=== PATIENT | male | born 1990 | race Caucasian/White ===

== ENCOUNTER 2016-11-08 03:14 | Emergency (ER) | payer SELFPAY ==
[~2016-11-08] VITALS: Ht 177.8 cm; Wt 76.9 kg
[~2016-11-08 03:14] MED LIST: ACET-1256 PO; IBUP-1050 PO
[2016-11-08 03:18] VITALS: TEMP 36.9; Ht 177.8 cm; Wt 76.9 kg
[2016-11-08] MEDS ORDERED: BENZOCAINE 20% (ORAJEL) 11.9 GM TUBE MT STA (03:36)
[2016-11-08] MEDS ORDERED: AMOXICILLIN 250 MG CAP PO STA (03:36)
[2016-11-08 03:38] VITALS: BP 134/98; PULSE 123; O2SAT 97
[2016-11-08] MEDS ORDERED: OXYCODONE IR HOME PACK PO ONE (03:45)
[2016-11-08] MEDS ORDERED: AMOXICIL/CLAVU 875MG HOME PACK PO ONE (03:45)
--- NOTE | 2016-11-08 03:49 | EMERGENCY ROOM VISIT NOTE ---
History First contact with patient: 03:21 Chief Complaint: DENTAL PAIN Stated Complaint: ABCESS TOOTH Nursing Triage Summary: "I think I have an abcess tooth" c/o pain in back bottom Right symptoms began Wednesday History of Present Illness The patient is a 26 year old male who presents to the Emergency Room with complaints of dental pain for the past few days who has poor dentition. He has not seen a dentist. He continues to smoke. He chews tobacco. Patient is present pain as aching, ranging in severity 6 out of 10. Nothing makes it better or worse. Patient denies fever, chills, cough, congestion, neck stiffness, dysphagia, chest pain, dyspnea. He is tolerating by mouth fluids and food. Review of Systems See HPI for pertinent positives & negatives. A total of 10 systems reviewed and were otherwise negative. Past Medical/Surgical History Medical Problems: (1) Finger laceration (2) No Known Active Medical Problems Social History Smoking Status: Current Every Day Smoker Smokeless Tobacco Use: Yes Alcohol Use: occasionally Marital Status: single Occupation Status: unemployed Current/Historical Medications Scheduled PRN Acetaminophen (Tylenol), 1,000 MG PO TID PRN for Pain or Fever Ibuprofen (Advil), 400-600 MG PO Q6H PRN for Pain Allergies Coded Allergies: No Known Allergies (Unverified , 11/08/16) Physical Exam Vital Signs Date Time Temp Pulse Resp B/P Pulse Ox O2 Delivery O2 Flow Rate FiO2 11/08/16 03:38 123 18 134/98 97 Room Air 11/08/16 03:18 36.9 138 20 127/81 96 Room Air Physical Exam VITALS: Vitals are noted on the nurse's note and reviewed by myself. Vital signs tachycardic GENERAL:pleasant male, anxious appearing, in no acute distress, nondiaphoretic, well-developed well-nourished. SKIN: The skin was without rashes, erythema, edema, or bruising. There is no tenting of the skin. Capillary reflex less than 2 seconds. HEAD: Normocephalic atraumatic. EARS: External auditory canals clear, tympanic membranes pearly bhatt without erythema or effusion bilaterally. EYES: Pupils equal round and reactive to light and accommodation. Conjunctivae without injection, sclerae without icterus. Extraocular movements intact. NOSE: Patent, turbinates without inflammation or discharge. No sinus tenderness. MOUTH: Mucous membranes moist. Pharynx without erythema or exudate. Uvula midline. Airway patent. Tongue does not deviate. Dental exam: Multiple missing teeth with dental decay, left lower molar with extensive dental decay, that is erythematous with no palpable abscess, induration to the gumline with no fluctuance NECK: Supple without nuchal rigidity. No lymphadenopathy. No thyromegaly. Cervical spine is nontender. No JVD. No meningeal signs HEART: Regular rate and rhythm without murmurs gallops or rubs. LUNGS: Clear to auscultation bilaterally without wheezes, rales or rhonchi. No dullness to percussion. No retractions or accessory muscle use. ABDOMEN: Positive bowel sounds x 4. Normal tympanic percussion. Soft, nontender, without masses or organomegaly. Reed sign negative. No guarding or rebound tenderness. MUSCULOSKELETAL: No muscle atrophy, erythema, or edema noted. NEURO: Patient was alert and oriented to person place and time. Normal sensation to light and sharp touch. No focal neurological deficits. Medical Decision & Procedures ED Course Prior records reviewed and summarized as above. Triage Nursing notes reviewed. The patient's history was concerning for dental pain Differential diagnosis: Etiologies such as cellulitis, abscess, gingivitis, Naveed angina, as well as others were entertained.. Physical examination: The physical examination was consistent with dental pain from dental infection ER treatment provided: Augmentin, OxyIR On reassessment the patient felt better. Diagnostics interpreted by me: Deferred This appears to be dental pain from dental infection. Patient was started on antibiotics and counseled on proper dental hygiene. He was advised to oral surgeon as soon as possible for treatment for his dental problem. His extensive dental decay and exposed roots. I believe the infection is from this. He was advised to return to the intermediate for facial swelling, fevers , stiffness, worsening signs or symptoms or as needed. Patient had no signs of airway compromise, Naveed angina or meningitis. No palpable abscess on exam. The pt informed about the findings as listed above. All questions were answered and pleased with the treatment. Return instructions were outlined and the patient was discharged in stable condition. Outpatient prescription management: Augmentin, OxyIR Referral: The patient was referred to oral surgery for follow-up in 2 to 3 days for a recheck of the current condition. Medical Decision As above Impression Primary Impression: Dental caries Additional Impression: Pain, dental Departure Information Dispostion Home / Self-Care Condition GOOD Referrals No Doctor, Assigned (PCP) Patient Instructions My [facility] Additional Instructions Augmentin 875mg: Take one pill 2 times daily for 10 days for your infection. All antibiotics can cause diarrhea. If this occurs and you feel worse or it does not resolve in 1-2 days follow up with your doctor or return to the Emergency Department as this could be signs of serious underlying problems. Any medication can cause an allergic reaction, stop the pills immediately and return to the ER for rash, hives, breathing difficulties, or swelling. Oxycodone (OxyIR) 5mg: Take 1-2 pills every four hours for breakthrough pain. Avoid alcohol, operating machinery or dangerous equipment, working on ladders or roofs, DRIVING, or situations where being under the influence may be dangerous. It is recommended to use an froc-phg-taoseve stool softener such as Colace, 100mg twice daily while taking this medication to avoid constipation. Ibuprofen(Motrin, Advil) may be used for fever or pain. Use 600mg every six hours as needed. Take with food. Avoid using more than 2400mg in a 24 hour period. Do not use 2400mg per day for more than three consecutive days without physician direction. Prolonged inappropriate use can lead to stomach upset or ulcers. This medication can be taken if you need to drive, work, or perform activities which may be dangerous when taking narcotic pain medication. (AND/OR) Acetaminophen(Tylenol) may be used for fever or pain. Use 1000mg every six hours as needed. Avoid using more than 3000mg in a 24 hour period. This medication can be taken if you need to drive, work, or perform activities which may be dangerous when taking narcotic pain medication. [place] teeth twice a day, floss daily and do warm saltwater gargles 3 times a day. Follow-up with oral surgery in 2-3 days. Call for an appointment. Return to ER sooner for facial swelling, fever, redness, worsening signs or symptoms or as needed. Problem Qualifiers
[2016-11-08] MEDS ORDERED: OXYC1TAB3 PO (03:56)
[2016-11-08] MEDS ORDERED: AMOX875T PO (03:56)
[2017-03-22] MEDS ORDERED: LCTX PO (13:42)
[2017-03-22] MEDS ORDERED: AMOX875T PO (13:42)
== END 2016-11-08 04:08 | disposition home or self-care (01) ==
LOC: C.EDB 03:15
DX: K02.9 Dental caries, unspecified (principal); F17.210 Nicotine dependence, cigarettes, uncomplicated; F17.220 Nicotine dependence, chewing tobacco, uncomplicated

== ENCOUNTER 2017-03-10 00:12 | Emergency (ER) | payer SELFPAY ==
[~2017-03-10] VITALS: Ht 177.8 cm; Wt 75.6 kg
[~2017-03-10 00:12] MED LIST changes: -ACET-1256 PO; -IBUP-1050 PO; +OXYC1TAB3 PO
[2017-03-10 00:15] VITALS: TEMP 36.8; Ht 177.8 cm; Wt 75.6 kg
[2017-03-10] MEDS ORDERED: AMOX875T PO (00:33)
[2017-03-10] MEDS ORDERED: AMOXICIL/CLAVU 875MG HOME PACK PO ONE (00:45)
[2017-03-10 00:55] VITALS: BP 132/81; PULSE 82; O2SAT 97
--- NOTE | 2017-03-10 04:23 | EMERGENCY ROOM VISIT NOTE ---
ED Visit Note First contact with patient: 00:18 CHIEF COMPLAINT: Toothache HISTORY OF PRESENT ILLNESS: This 27-year-old male patient presented to the emergency department with a progressive toothache for past 2-3 days. The patient believes it is coming from the left lower jaw. The pain is now steady and severe and radiates to the face. The patient does not a dentist appointment set up. They rate their pain a 10/10 and the ibuprofen and Tylenol they have been taking has not relieved the pain. Denies facial swelling or fever. The patient denies any discharge from the mouth. REVIEW OF SYSTEMS: A 6 system review of systems was completed with positives and pertinent negatives listed in the HPI. ALLERGIES: No known allergies MEDICATIONS: No known allergies PMH: No chronic medications SOCIAL HISTORY: Employed and lives locally PHYSICAL EXAM: Vitals are noted on the nurse's note and reviewed by myself. Vital signs stable. GENERAL: White male, in no acute distress, nondiaphoretic, well-developed well- nourished. Mouth: The left lower molars, #17, 18, and 19 tooth are all very carious and the gum is swollen and tender around it, without any discharge or signs of an abscess. The remainder of the pharynx and tonsils are without erythema, edema, or exudate. The airway is patent. There is no facial swelling, cervical or submandibular lymphadenopathy. The patient appears uncomfortable and in pain. The patient has overall poor dental hygiene. EARS: External auditory canals clear, tympanic membranes pearly bhatt without erythema or effusion bilaterally. HEART: Regular rate and rhythm without murmur gallop or rub LUNG: Clear to auscultation bilateral ED COURSE: Physical exam and history were performed. Nursing notes and EMR were reviewed. The patient appears to have dental pain for the past few days. On examination his dentition is very poor. There is no distinct evidence of abscess or airway compromise. Review of EMR shows the patient has been seen multiple times for dental-related complaints to this facility. I do not feel comfortable providing him narcotics because of the frequency of his visits. He will be given a course of Augmentin, with his first doses provided here via home pack. The patient was thoroughly educated on the importance of following with a dentist for definitive care. He was otherwise invited back to the emergency department with any new, worsening, or concerning symptoms. Problem List Medical Problems: (1) Finger laceration Status: Resolved Current/Historical Medications Scheduled Amoxicillin & Pot Clavulanate (Augmentin 875-125 mg), 1 TAB PO BID Allergies Coded Allergies: No Known Allergies (Unverified , 03/10/17) Vital Signs Date Time Temp Pulse Resp B/P Pulse Ox O2 Delivery O2 Flow Rate FiO2 03/10/17 00:55 82 14 132/81 97 03/10/17 00:15 36.8 87 18 113/73 96 Room Air Medications Administered Medications (Trade) Dose Ordered Sig/Lisa Route Start Time Stop Time Status Last Admin Dose Admin Amoxicillin/ Clavulanate Potassium (Augmentin 875MG Home Pack) 1 homepack UD ONCE PO 03/10/17 00:45 03/10/17 00:46 DC 03/10/17 00:51 1 HOMEPACK Departure Information Impression Primary Impression: Pain, dental Dispostion Home / Self-Care Condition GOOD Prescriptions Amoxicillin & Pot Clavulanate (Augmentin 875-125 mg) 1 Tab Tab 1 TAB PO BID for 7 Days, #14 TAB Prov: Eleazar Hernandez PA-C 03/10/17 Forms HOME CARE DOCUMENTATION FORM, IMPORTANT VISIT INFORMATION Patient Instructions My [facility] Additional Instructions You were seen and evaluated today on an emergency basis only. This is not a substitute for, or an effort to provide, complete comprehensive medical care. It is not possible to recognize and treat all injuries or illnesses in a single emergency department visit. For this reason it is recommended that you followup with a dentist as soon as possible for definitive care. For baseline pain relief you may alternate ibuprofen and acetaminophen every 4 hours for pain control. Take 600 mg ibuprofen (Advil) and then 4 hours later take 1000 mg acetaminophen (Tylenol). Do not take more than 3000 mg acetaminophen in a single day. Amoxicillin Clavulanate (Augmentin) 875mg: Take one pill twice daily for 7 days for your infection. All antibiotics can cause diarrhea. If this occurs and you feel worse or it does not resolve in 1-2 days follow up with your doctor or return to the Emergency Department as this could be signs of serious underlying problems. Any medication can cause an allergic reaction, stop the pills immediately and return to the ER for rash, hives, breathing difficulties, or swelling. You are welcome to return to the emergency department anytime with new, worsening, or concerning symptoms.
[2017-03-22] MEDS ORDERED: AMOX875T PO (13:42)
[2017-03-22] MEDS ORDERED: LCTX PO (13:42)
== END 2017-03-10 00:55 | disposition home or self-care (01) ==
LOC: C.EDB 00:13
DX: K08.89 Other specified disorders of teeth and supporting structures (principal)

== ENCOUNTER 2017-03-20 23:39 | Inpatient (IN) | payer OTHER ==
[~2017-03-20] VITALS: Ht 177.8 cm; Wt 77.0 kg
[2017-03-20] MEDS ORDERED: VANCOMYCIN INJ 1,000 MG in SODIUM CHLORIDE 0.9% 250ML 250 ML IV STA (23:54)
[2017-03-20] MEDS ORDERED: MoRPHine SULFATE 4 MG/ML 1 ML CARP\\VIAL IV STA (23:54)
[2017-03-21] MEDS ORDERED: SODIUM CHLORIDE 0.9% 1000ML 1,000 ML IV ONE
[2017-03-21] MEDS ORDERED: VANCOMYCIN INJ 1,600 MG in SODIUM CHLORIDE 0.9% 500ML 500 ML IV STA (00:06)
[2017-03-21] MEDS ORDERED: OPTIRAY 320 IV PRN (00:15)
[2017-03-21 00:31] LABS: BASO % 0.2 %; BASO ABS # 0.02 K/uL (0-0.2); COMPLETE YES; EOS % 1.7 %; HEMATOCRIT 43.6 % (42-52); IG% 0.1 %; LYMPH % 29.9 %; LYMPH ABS # 2.81 K/uL (1.2-3.4); MEAN CELL VOLUME 90.1 fL (80-100); MEAN CORPUSCULAR HEMOGLOBIN 30.8 pg (25-34); MEAN CORPUSCULAR HGB CONC 34.2 g/dl (32-36); MEAN PLATELET VOLUME 9.5 fL (7.4-10.4); MONO % 8.3 %; NEUT % 59.8 %; PLATELET COUNT 251 K/uL (130-400); RED BLOOD COUNT 4.84 M/uL (4.7-6.1); WHITE BLOOD COUNT 9.41 K/uL (4.8-10.8)
[2017-03-21 00:49] LABS: BUN/CREATININE RATIO 11.6 (10-20); CALCIUM 8.3 mg/dl (8.5-10.1); CREATININE 0.86 mg/dl (0.60-1.40); POTASSIUM 3.3 mmol/L (3.5-5.1)
[2017-03-21 00:52] LABS: ALB/GLOB RATIO 1.1 (0.9-2)
--- NOTE | 2017-03-21 01:24 | DIAGNOSTIC IMAGING REPORT ---
CT SCAN OF THE NECK WITH IV CONTRAST CLINICAL HISTORY: Left facial pain and swelling. COMPARISON STUDY: No priors. TECHNIQUE: Following the IV administration of 93 cc of Optiray 320, CT scan of the soft tissues of the neck was performed from the skull base to the upper chest. Images are reviewed in the axial, sagittal, and coronal planes. IV contrast was administered without complication. CT DOSE: 443.62 mGy.cm FINDINGS: Pharynx: The nasopharynx, oropharynx, and laryngeal pharynx are normal in appearance. The pharyngeal airway is widely patent. There is no evidence of mass lesion. The vocal cords are symmetric. The parapharyngeal fat is well maintained. The prevertebral/retropharyngeal soft tissues are within normal limits. The epiglottis is normal. Dentition: There is a large periapical lucency seen around the left most posterior left maxillary molar with associated cortical breakthrough. This is best seen on axial image #133. A periapical lucency with cortical breakthrough is also seen involving a left maxillary premolar on image #133. A periapical lucency with cortical breakthrough is also seen involving the right most posterior maxillary molar. A periapical lucency is also seen involving a left mandibular molar. Numerous large dental caries are identified. Soft tissues: There is marked edema involving the superficial and deep left facial soft tissues. The appearance is typical for cellulitis. There is a tiny fluid collection suggested overlying the left aspect of the mandibular molars on image #164. This measures up to 11 mm and may represent a tiny abscess. Lymphadenopathy: Mildly enlarged left cervical lymph nodes are likely on a reactive basis.. Thyroid: Normal in size and attenuation. Salivary glands: Calcified sialoliths are seen in the left parotid gland. The salivary glands are otherwise normal in appearance. Brain parenchyma: The visualized brain parenchyma at the skull base is normal in appearance. Vascular structures: The carotid arteries and jugular veins are widely patent bilaterally. Skeletal structures: Imaged portions of the calvarium at the skull base are within normal limits. The cervical spine appears intact. Sinuses and mastoids: There is trace mucosal thickening in the left maxillary antrum. The remaining paranasal sinuses are clear. The mastoid air cells are well pneumatized. Orbits: The bony orbits are intact. Orbital contents are within normal limits. Lung apices: Visualized apical lung parenchyma is clear. The trachea is patent. IMPRESSION: 1. Periodontal disease with numerous dental caries and several large periapical lucencies with associated cortical breakthrough as detailed above. Follow-up with dentistry is recommended. 2. Findings are consistent with cellulitis of the left facial soft tissues, likely secondary to periodontal disease. A small abscess is suggested superficial to the left mandibular molars and measures up to 11 mm. 3. Left parotid sialolithiasis. 4. The pharyngeal soft tissues are within normal limits. 5. Mildly enlarged left cervical chain lymph nodes are likely on a reactive basis. Electronically signed by: Ben Chaudhary M.D. 03/21/2017 1:22 AM Dictated Date/Time: 03/21/2017 1:11 AM
[2017-03-21] MEDS ORDERED: POTASSIUM CHLORIDE 10 MEQ TABCR PO STA (02:14)
[2017-03-21 02:22] LABS: MAGNESIUM 2.2 mg/dl (1.8-2.4)
[2017-03-21] MEDS ORDERED: KETOROLAC TROMETHAMINE 30 MG/ML VIAL IV PRN (02:30)
[2017-03-21] MEDS ORDERED: ACETAMINOPHEN 325 MG TAB PO PRN (02:30)
[2017-03-21] MEDS ORDERED: ONDANSETRON INJ 2 MG/ML 2 ML VIAL IV PRN ×2 (02:30)
[2017-03-21] MEDS ORDERED: PROMETHAZINE HCL INJ 12.5 MG in SODIUM CHLORIDE 0.9% 50ML 50 ML IV PRN (02:30)
[2017-03-21] MEDS ORDERED: IBUPROFEN 200 MG TAB PO PRN (02:30)
[2017-03-21] MEDS ORDERED: TRAMADOL HCL 50 MG TAB PO PRN (02:30)
[2017-03-21] MEDS ORDERED: ALBUT/IPRATROP 3MG/0.5MG NEB 3 ML VIAL INH PRN ×2 (03:00)
[2017-03-21] MEDS ORDERED: LACTATED RINGER'S 1000ML 1,000 ML IV ONE (03:30)
[2017-03-21] MEDS ORDERED: CLINDAMYCIN IV 600 MG in DEXTROSE 5% ADD-VANTAGE 50ML 50 ML IV STA (03:32)
[2017-03-21 03:54] VITALS: BP 118/74; PULSE 82; TEMP 36.9; O2SAT 96; Ht 177.8 cm; Wt 77.0 kg
--- NOTE | 2017-03-21 04:08 | EMERGENCY ROOM VISIT NOTE ---
History First contact with patient: 23:46 Chief Complaint: DENTAL PAIN Stated Complaint: ODONTOGENIC INFECTION OF JAW History of Present Illness The patient is a 27 year old male who presents to the Emergency Room with complaints of left-sided facial swelling worsening over the past 48 hours. The patient was initially seen and evaluated by myself around 9 days ago for dental pain. The patient was started on Augmentin and given a prescription of the antibiotic. The patient states that he took the antibiotic as prescribed. He did not contact a dentist. 2 nights ago he started having some mild swelling of the left side of his face, but this has significantly worsened. He has not had a fever at home and rates his discomfort a 9/10. Advil and Tylenol are not significantly improve his symptoms. He is not having neck pain or swelling under his tongue. Review of Systems More than 10 systems were reviewed and otherwise negative with the exception of history of present illness. Past Medical/Surgical History Medical Problems: (1) Finger laceration (2) No Known Active Medical Problems (3) Odontogenic infection of jaw Family History No pertinent family history Social History Smoking Status: Current Every Day Smoker Alcohol Use: occasionally Marital Status: single Occupation Status: unemployed Current/Historical Medications No Active Prescriptions or Reported Meds Allergies Coded Allergies: No Known Allergies (Unverified , 03/20/17) Physical Exam Vital Signs Date Time Temp Pulse Resp B/P (MAP) Pulse Ox O2 Delivery O2 Flow Rate FiO2 03/21/17 01:56 83 18 108/68 96 Room Air 03/21/17 00:50 87 18 124/66 96 Room Air 03/20/17 23:42 36.8 102 18 116/75 98 Room Air Pain Rating (0-10): 3.0 Physical Exam VITALS: Vitals are noted on the nurse's note and reviewed by myself. Vital signs stable. GENERAL: Well-developed, well-nourished, white male, who is in no acute distress and resting comfortably. Patient is cooperative with the examination. HEAD: There is significant and obvious swelling and edema to the left side face near the mandible. This area is distinctly tender without obvious fluctuance. MOUTH: Mucous membranes moist. Tonsils are not enlarged. Pharynx without erythema, blood, or exudate. Uvula midline. Airway patent. No Ludwigs. Dentition in poor repair. The left lower jaw is very tender with edema around the gumline most notably over the left second molar NECK: Supple without nuchal rigidity. No lymphadenopathy. No thyromegaly. Cervical spine is nontender. HEART: Regular rate and rhythm without murmurs gallops or rubs. LUNGS: Clear to auscultation bilaterally without wheezes, rales or rhonchi. No retractions or accessory muscle use. Medical Decision & Procedures ER Provider Diagnostic Interpretation: CT SCAN OF THE NECK WITH IV CONTRAST CLINICAL HISTORY: Left facial pain and swelling. COMPARISON STUDY: No priors. TECHNIQUE: Following the IV administration of 93 cc of Optiray 320, CT scan of the soft tissues of the neck was performed from the skull base to the upper chest. Images are reviewed in the axial, sagittal, and coronal planes. IV contrast was administered without complication. CT DOSE: 443.62 mGy.cm FINDINGS: Pharynx: The nasopharynx, oropharynx, and laryngeal pharynx are normal in appearance. The pharyngeal airway is widely patent. There is no evidence of mass lesion. The vocal cords are symmetric. The parapharyngeal fat is well maintained. The prevertebral/retropharyngeal soft tissues are within normal limits. The epiglottis is normal. Dentition: There is a large periapical lucency seen around the left most posterior left maxillary molar with associated cortical breakthrough. This is best seen on axial image #133. A periapical lucency with cortical breakthrough is also seen involving a left maxillary premolar on image #133. A periapical lucency with cortical breakthrough is also seen involving the right most posterior maxillary molar. A periapical lucency is also seen involving a left mandibular molar. Numerous large dental caries are identified. Soft tissues: There is marked edema involving the superficial and deep left facial soft tissues. The appearance is typical for cellulitis. There is a tiny fluid collection suggested overlying the left aspect of the mandibular molars on image #164. This measures up to 11 mm and may represent a tiny abscess. Lymphadenopathy: Mildly enlarged left cervical lymph nodes are likely on a reactive basis.. Thyroid: Normal in size and attenuation. Salivary glands: Calcified sialoliths are seen in the left parotid gland. The salivary glands are otherwise normal in appearance. Brain parenchyma: The visualized brain parenchyma at the skull base is normal in appearance. Vascular structures: The carotid arteries and jugular veins are widely patent bilaterally. Skeletal structures: Imaged portions of the calvarium at the skull base are within normal limits. The cervical spine appears intact. Sinuses and mastoids: There is trace mucosal thickening in the left maxillary antrum. The remaining paranasal sinuses are clear. The mastoid air cells are well pneumatized. Orbits: The bony orbits are intact. Orbital contents are within normal limits. Lung apices: Visualized apical lung parenchyma is clear. The trachea is patent. IMPRESSION: 1. Periodontal disease with numerous dental caries and several large periapical lucencies with associated cortical breakthrough as detailed above. Follow-up with dentistry is recommended. 2. Findings are consistent with cellulitis of the left facial soft tissues, likely secondary to periodontal disease. A small abscess is suggested superficial to the left mandibular molars and measures up to 11 mm. 3. Left parotid sialolithiasis. 4. The pharyngeal soft tissues are within normal limits. 5. Mildly enlarged left cervical chain lymph nodes are likely on a reactive basis. Laboratory Results 03/21/17 00:04 Red Blood Count 4.84, Mean Corpuscular Volume 90.1, Mean Corpuscular Hemoglobin 30.8, Mean Corpuscular Hemoglobin Concent 34.2, Mean Platelet Volume 9.5, Neutrophils (%) (Auto) 59.8, Lymphocytes (%) (Auto) 29.9, Monocytes (%) (Auto) 8.3, Eosinophils (%) (Auto) 1.7, Basophils (%) (Auto) 0.2, Neutrophils # (Auto) 5.63, Lymphocytes # (Auto) 2.81, Monocytes # (Auto) 0.78, Eosinophils # (Auto) 0.16, Basophils # (Auto) 0.02 03/21/17 00:04 Test 03/21/17 00:04 03/21/17 00:22 White Blood Count 9.41 K/uL (4.8-10.8) Red Blood Count 4.84 M/uL (4.7-6.1) Hemoglobin 14.9 g/dL (14.0-18.0) Hematocrit 43.6 % (42-52) Mean Corpuscular Volume 90.1 fL (80-100) Mean Corpuscular Hemoglobin 30.8 pg (25-34) Mean Corpuscular Hemoglobin Concent 34.2 g/dl (32-36) Platelet Count 251 K/uL (130-400) Mean Platelet Volume 9.5 fL (7.4-10.4) Neutrophils (%) (Auto) 59.8 % Lymphocytes (%) (Auto) 29.9 % Monocytes (%) (Auto) 8.3 % Eosinophils (%) (Auto) 1.7 % Basophils (%) (Auto) 0.2 % Neutrophils # (Auto) 5.63 K/uL (1.4-6.5) Lymphocytes # (Auto) 2.81 K/uL (1.2-3.4) Monocytes # (Auto) 0.78 K/uL (0.11-0.59) Eosinophils # (Auto) 0.16 K/uL (0-0.5) Basophils # (Auto) 0.02 K/uL (0-0.2) RDW Standard Deviation 43.9 fL (36.4-46.3) RDW Coefficient of Variation 13.3 % (11.5-14.5) Immature Granulocyte % (Auto) 0.1 % Immature Granulocyte # (Auto) 0.01 K/uL (0.00-0.02) Anion Gap 7.0 mmol/L (3-11) Est Creatinine Clear Calc Drug Dose 132.0 ml/min Estimated GFR () 136.8 Estimated GFR (Non- 118.0 BUN/Creatinine Ratio 11.6 (10-20) Calcium Level 8.3 mg/dl (8.5-10.1) Magnesium Level 2.2 mg/dl (1.8-2.4) Total Bilirubin 0.6 mg/dl (0.2-1) Aspartate Amino Transf (AST/SGOT) 12 U/L (15-37) Alanine Aminotransferase (ALT/SGPT) 25 U/L (12-78) Alkaline Phosphatase 92 U/L (45-117) Total Protein 7.5 gm/dl (6.4-8.2) Albumin 3.9 gm/dl (3.4-5.0) Globulin 3.6 gm/dl (2.5-4.0) Albumin/Globulin Ratio 1.1 (0.9-2) Bedside Lactic Acid Venous 1.51 mmol/L (0.90-1.70) Medications Administered Medications (Trade) Dose Ordered Sig/Lisa Route Start Time Stop Time Status Last Admin Dose Admin Sodium Chloride 1,000 ml @ 999 mls/hr Q1H1M ONCE IV 03/21/17 00:00 03/21/17 01:00 DC 03/21/17 00:21 999 MLS/HR Morphine Sulfate (MoRPHine SULFATE INJ) 4 mg NOW STAT IV 03/20/17 23:54 03/21/17 00:00 DC 03/21/17 00:22 4 MG Vancomycin HCl 1600 mg/Sodium Chloride 532 ml @ 200 mls/hr NOW STAT IV 03/21/17 00:06 03/21/17 02:35 DC 03/21/17 00:21 200 MLS/HR Potassium Chloride (Klor-Con M10) 40 meq NOW STAT PO 03/21/17 02:14 03/21/17 02:17 DC 03/21/17 02:51 40 MEQ ED Course Physical exam and history were performed. Nursing notes and EMR were reviewed. Patient appears to have a worsening dental infection despite pain on outpatient antibiotics. The patient has distinct and notable swelling over the left-sided face. IV access was established and labs were obtained. Blood cultures were gathered. CT scan of the infection was performed. The patient was empirically started on IV vancomycin as he appears to have failed outpatient Augmentin. The patient's blood work is as above and was reviewed. He does not have a significantly elevated white blood cell count, gross anemia, bandemia, or significant electrolyte imbalance. Lactic acid is negative. The patient CT scan is as above and does show a diffuse cellulitis with small abscess. Overall the patient does not appear stable for discharge home. He appears to be failing outpatient antibiotics and has an extensive infection. The case was discussed with the on-call hospitalist who agreed to evaluate the patient here in the department for further care and management. Please see their dictation for further course, plan, and disposition. The chart was completed utilizing [employer] Speech Voice Recognition Software. Grammatical errors, random word insertions, pronoun errors, and incomplete sentences are an occasional consequence of this system due to software limitations, ambient noise, and hardware issues. Any formal questions or concerns about the content, text, or information contained within the body of this dictation should be directly addressed to the provider for clarification. . Medical Decision Differential diagnosis: Etiologies such as cellulitis, abscess, MRSA infection, DVT, necrotizing fasciitis, dermatitis, drug eruption, as well as others were entertained.. Impression Primary Impression: Odontogenic infection of jaw Departure Information Dispostion Still a Patient Condition FAIR Prescriptions No Active Prescriptions or Reported Meds Referrals No Doctor, Assigned (PCP) Forms HOME CARE DOCUMENTATION FORM, IMPORTANT VISIT INFORMATION Patient Instructions My [facility]
--- NOTE | 2017-03-21 05:09 | HISTORY & PHYSICAL EXAMINATION ---
DATE OF ADMISSION: 03/21/2017 PRIMARY CARE PHYSICIAN: None. CHIEF COMPLAINT: Left jaw/face swelling. HISTORY OF PRESENT ILLNESS: Hx obtained from px and records. Medical history significant for asthma, ongoing tobacco abuse. Last week, the patient noted to L lower jaw toothache symptoms. Px was seen at the Emergency Room. Carious left lower molars noted. Impression was dental pain Patient prescribed Augmentin w/ good compliance. Advised to see a dentist downtown. Px unable to do so. Increased painful swelling of the L jaw and face in the last few days. Some difficulty in opening mouth. No fever, no chills, no chest pain, no shortness of breath. At the Emergency Room, the patient received Vancomycin. MEDICAL HISTORY: As above, asthma is mainly exercise induced and well controlled as per px. SURGERIES: finger laceration surgery. HOME MEDICATIONS: Augmentin. FAMILY HISTORY: Diabetes. PERSONAL AND SOCIAL HISTORY: One half pack daily. No chronic intake of alcoholic beverages. restaurant employee. REVIEW OF SYSTEMS: As per HPI, all other ROS negative. PHYSICAL EXAMINATION: VITAL SIGNS: Blood pressure was noted to be 116/75, pulse rate 100, RR 18 T 37 O2 98 on room air. GENERAL: Noted to be slightly uncomfortable, no respiratory distress. SKIN: Normal color. HEENT: [place] palpebral conjunctivae, dry mucosa. Swelling on the left cheek, left jaw, tender, indurated; carious posterior molars, L akshat arch; some limitation of mouth opening NECK: No JVD. Supple, tender L cervical area CHEST: Occasional wheeze. ABDOMEN: Soft. EXTREMITIES: No edema, no tenderness. NEUROLOGIC: No gross focality. LABORATORY DATA: Hemoglobin was noted to be 14.9, white cell count 10, platelets 251. Sodium 140, potassium 3.3, chloride 107, CO2 28, BUN 10, creatinine 0.8, glucose 119. IMAGING DATA: CAT soft tissue of the neck initial read showed periodontal disease with several large periapical lucencies associated with breakthrough superficial cellulitis; small abscess over L akshat molars measuring 11 mm, large left cervical chain lymph nodes. CXR as per my interpretation : no acute pathology ASSESSMENT: 1. Odontogenic infection no sepsis for now. Failed outpatient treatment. 2. Hypokalemia secondary to poor p.o. intake 3. asthma, well controlled 4. ongoing tobacco abuse. PLAN: [facility] Clindamycin Dental consultation. Replace potassium. Nicotine patch. DVT prophylaxis, SCDs. Full code. Case d/w Dr. Vera (dental surgeon pay station attendant). He agrees w/ IV Clindamycin and recommends Decadron 8 mg/IV q6h x 3 doses. OK for px to be discharged if w/ improvement w/ above regimen on oral antbiotic course. Needs outpx dental ffup. MTDD
[2017-03-21 07:46] VITALS: BP 103/67; PULSE 69; TEMP 36.8; O2SAT 99
--- NOTE | 2017-03-21 07:46 | DIAGNOSTIC IMAGING REPORT ---
SINGLE VIEW CHEST CLINICAL HISTORY: Wheezing. FINDINGS: An AP, portable, upright chest radiograph is obtained. No prior studies are available for comparison at the time of dictation. The examination is degraded by portable technique and patient rotation. The cardiomediastinal silhouette is unremarkable. The lungs and pleural spaces are clear. No pneumothorax is seen. The bony thorax is grossly intact. IMPRESSION: No active disease in the chest. Electronically signed by: Ben Chaudhary M.D. 03/21/2017 7:44 AM Dictated Date/Time: 03/21/2017 7:44 AM
[2017-03-21 08:00] VITALS: O2SAT 99
[2017-03-21] MEDS: NICOTINE 14 MG/24 HR TDSY TD SCH (08:18)
[2017-03-21] MEDS: LACTOBACILLUS ACIDOPHILUS (FLORANEX) TAB PO SCH ×3 (08:18→15:31)
[2017-03-21] MEDS ORDERED: PANTOprazole SOD 40 MG TAB PO ONE (08:30)
[2017-03-21] MEDS ORDERED: CLINDAMYCIN CONSULT ACTIVE PRN ×2 (09:00)
[2017-03-21] MEDS: DEXAMETHASONE INJ 8 MG in SYRINGE 0 ML IV SCH ×3 (09:15→20:54)
[2017-03-21 15:13] VITALS: BP 107/66; PULSE 71; TEMP 36.6; O2SAT 97
[2017-03-21] MEDS: CLINDAMYCIN IV 600 MG in DEXTROSE 5% ADD-VANTAGE 50ML 50 ML IV SCH ×2 (15:31→20:54)
--- NOTE | 2017-03-21 17:51 | Progress Note ---
Internal Med Progress Note Date of Service: Mar 21, 2017. Provider Documentation: SUBJECTIVE: says pain is slightly better eating ok no fevers no nausea resting OBJECTIVE: Vital Signs-as noted below Exam: General-alert and awake. Not in distress HEENT-Normal hearing. Slight swollen left cheek Neck-no neck masses, supple Lungs-cta b/l no wheezing or crackles Heart-s1 and s2 heard regular rate and rhythm, no murmurs Abdomen-soft bowel sounds present non tender no distension Extremities-no edema, no erythema Neuro-alert and awake moves extremities Lab data as noted below. ASSESSMENT & PLAN: 1. Odontogenic infection no sepsis for now. Failed outpatient treatment. on clindamycin and Decadron continue same if improved plan to d/c on Augmentin and followup with dental surgeon. 2. Hypokalemia secondary to poor p.o. intake replaced. 3. asthma, well controlled 4. ongoing tobacco abuse. DVT PROPHYLAXIS scds DISPOSITION possible d/c in am if stable Vital Signs: Date Time Temp Pulse Resp B/P (MAP) Pulse Ox O2 Delivery O2 Flow Rate FiO2 03/21/17 15:13 36.6 71 107/66 (80) 97 03/21/17 08:00 99 Room Air 03/21/17 07:46 36.8 69 18 103/67 (79) 99 Room Air 03/21/17 03:54 36.9 82 18 118/74 96 Room Air 03/21/17 02:38 79 18 112/71 95 Room Air 03/21/17 01:56 83 18 108/68 96 Room Air 03/21/17 00:50 87 18 124/66 96 Room Air 03/20/17 23:42 36.8 102 18 116/75 98 Room Air Lab Results: Results Past 24 Hours Test 03/21/17 00:04 03/21/17 00:22 Range/Units White Blood Count 9.41 4.8-10.8 K/uL Red Blood Count 4.84 4.7-6.1 M/uL Hemoglobin 14.9 14.0-18.0 g/dL Hematocrit 43.6 42-52 % Mean Corpuscular Volume 90.1 80-100 fL Mean Corpuscular Hemoglobin 30.8 25-34 pg Mean Corpuscular Hemoglobin Concent 34.2 32-36 g/dl Platelet Count 251 130-400 K/uL Mean Platelet Volume 9.5 7.4-10.4 fL Neutrophils (%) (Auto) 59.8 % Lymphocytes (%) (Auto) 29.9 % Monocytes (%) (Auto) 8.3 % Eosinophils (%) (Auto) 1.7 % Basophils (%) (Auto) 0.2 % Neutrophils # (Auto) 5.63 1.4-6.5 K/uL Lymphocytes # (Auto) 2.81 1.2-3.4 K/uL Monocytes # (Auto) 0.78 0.11-0.59 K/uL Eosinophils # (Auto) 0.16 0-0.5 K/uL Basophils # (Auto) 0.02 0-0.2 K/uL RDW Standard Deviation 43.9 36.4-46.3 fL RDW Coefficient of Variation 13.3 11.5-14.5 % Immature Granulocyte % (Auto) 0.1 % Immature Granulocyte # (Auto) 0.01 0.00-0.02 K/uL Sodium Level 142 136-145 mmol/L Potassium Level 3.3 3.5-5.1 mmol/L Chloride Level 107 98-107 mmol/L Carbon Dioxide Level 28 21-32 mmol/L Anion Gap 7.0 3-11 mmol/L Blood Urea Nitrogen 10 7-18 mg/dl Creatinine 0.86 0.60-1.40 mg/dl Est Creatinine Clear Calc Drug Dose 132.0 ml/min Estimated GFR () 136.8 Estimated GFR (Non- 118.0 BUN/Creatinine Ratio 11.6 10-20 Random Glucose 119 70-99 mg/dl Calcium Level 8.3 8.5-10.1 mg/dl Magnesium Level 2.2 1.8-2.4 mg/dl Total Bilirubin 0.6 0.2-1 mg/dl Aspartate Amino Transf (AST/SGOT) 12 15-37 U/L Alanine Aminotransferase (ALT/SGPT) 25 12-78 U/L Alkaline Phosphatase 92 45-117 U/L Total Protein 7.5 6.4-8.2 gm/dl Albumin 3.9 3.4-5.0 gm/dl Globulin 3.6 2.5-4.0 gm/dl Albumin/Globulin Ratio 1.1 0.9-2 Bedside Lactic Acid Venous 1.51 0.90-1.70 mmol/L Microbiology Results 03/21/17 Blood Culture, Received Pending 03/21/17 Blood Culture, Received Pending
[2017-03-21 22:52] VITALS: BP 122/72; PULSE 86; TEMP 36.7; O2SAT 98
[2017-03-22] MEDS: CLINDAMYCIN IV 600 MG in DEXTROSE 5% ADD-VANTAGE 50ML 50 ML IV SCH ×2 (05:56→13:47)
[2017-03-22 07:46] VITALS: BP 111/65; PULSE 66; TEMP 36.5; O2SAT 95
[2017-03-22] MEDS: LACTOBACILLUS ACIDOPHILUS (FLORANEX) TAB PO SCH ×2 (07:51→12:32)
[2017-03-22] MEDS: NICOTINE 14 MG/24 HR TDSY TD SCH (07:52)
[2017-03-22 08:15] LABS: BLOOD UREA NITROGEN 7 mg/dl (7-18); BUN/CREATININE RATIO 10.8 (10-20); CARBON DIOXIDE 27 mmol/L (21-32); CHLORIDE 108 mmol/L (98-107); CREATININE 0.65 mg/dl (0.60-1.40); GLUCOSE 139 mg/dl (70-99); POTASSIUM 4.1 mmol/L (3.5-5.1); SODIUM 144 mmol/L (136-145)
[2017-03-22 08:23] LABS: CALCIUM 8.4 mg/dl (8.5-10.1)
[2017-03-22] MEDS ORDERED: LCTX PO (13:42)
[2017-03-22] MEDS ORDERED: AMOX875T PO (13:42)
--- NOTE | 2017-03-22 13:44 | Discharge Instructions ---
Discharge Instructions Date of Service Mar 22, 2017. Admission Reason for Admission: Odontogenic Infection Of Jaw Discharge Discharge Diagnosis / Problem: Odontogenic Infection Of Jaw Discharge Goals Goal(s): Decrease discomfort, Improve function Activity Recommendations Activity Limitations: resume your previous activity . Instructions / Follow-Up Instructions / Follow-Up FOLLOWUP WITH DENTAL SURGEON SOON POSSIBLE. FOLLOWUP WITH FAMILY DOCTOR REGULARLY STRONGLY ADVICE FOR SMOKING CESSATION Current Hospital Diet Patient's current hospital diet: Regular Diet Discharge Diet Recommended Diet: Regular Diet Pending Studies Studies pending at discharge: no Medical Emergencies . Who to Call and When: Medical Emergencies: If at any time you feel your situation is an emergency, please call 911 immediately. . Non-Emergent Contact Non-Emergency issues call your: Primary Care Provider . . "Provider Documentation" section prepared by Krishna Pittman. . VTE Core Measure Inpt VTE Proph given/why not?: SCD's
[2017-03-22 13:52] VITALS: BP 111/65; PULSE 66; TEMP 36.5; O2SAT 95
--- NOTE | 2017-03-22 20:06 | Progress Note ---
Internal Med Progress Note Date of Service: Mar 22, 2017. Provider Documentation: SUBJECTIVE: dental pain improved tolerating diet no sob afebrile wants to be discharged OBJECTIVE: Vital Signs-as noted below Exam: General-alert and awake. Not in distress HEENT-Normal hearing. Slight swollen left cheek Neck-no neck masses, supple Lungs-cta b/l no wheezing or crackles Heart-s1 and s2 heard regular rate and rhythm, no murmurs Abdomen-soft bowel sounds present non tender no distension Extremities-no edema, no erythema Neuro-alert and awake moves extremities Lab data as noted below. ASSESSMENT & PLAN: 1. Odontogenic infection no sepsis for now. Failed outpatient treatment. on clindamycin and Decadron continue same improved d/carlos on Augmentin to f/u with dental surgeon 2. Hypokalemia secondary to poor p.o. intake replaced. 3. asthma, well controlled 4. ongoing tobacco abuse. discharged home Vital Signs: Date Time Temp Pulse Resp B/P (MAP) Pulse Ox O2 Delivery O2 Flow Rate FiO2 03/22/17 13:52 36.5 66 16 95 Room Air 03/22/17 08:00 Room Air 03/22/17 07:46 36.5 66 16 111/65 (80) 95 Room Air 03/21/17 23:58 Room Air 03/21/17 22:52 36.7 86 18 122/72 (89) 98 Room Air Lab Results: Results Past 24 Hours Test 03/22/17 07:07 Range/Units Sodium Level 144 136-145 mmol/L Potassium Level 4.1 3.5-5.1 mmol/L Chloride Level 108 98-107 mmol/L Carbon Dioxide Level 27 21-32 mmol/L Anion Gap 9.0 3-11 mmol/L Blood Urea Nitrogen 7 7-18 mg/dl Creatinine 0.65 0.60-1.40 mg/dl Est Creatinine Clear Calc Drug Dose 174.7 ml/min Estimated GFR () > 150.0 Estimated GFR (Non- 132.4 BUN/Creatinine Ratio 10.8 10-20 Random Glucose 139 70-99 mg/dl Calcium Level 8.4 8.5-10.1 mg/dl
--- NOTE | 2017-03-22 20:08 | Discharge Summary ---
Discharge Summary Date of Service Mar 22, 2017. Discharge Summary Admission Date: Mar 21, 2017 at 02:24 Discharge Date: Mar 22, 2017 Discharge Disposition: Home Principal Diagnosis: odontogenic infection Secondary Diagnoses/Problems: for asthma, ongoing tobacco abuse. Procedures: CT SCAN SOFT TISSUE NECK: 1. Periodontal disease with numerous dental caries and several large periapical lucencies with associated cortical breakthrough as detailed above. Follow-up with dentistry is recommended. 2. Findings are consistent with cellulitis of the left facial soft tissues, likely secondary to periodontal disease. A small abscess is suggested superficial to the left mandibular molars and measures up to 11 mm. 3. Left parotid sialolithiasis. 4. The pharyngeal soft tissues are within normal limits. 5. Mildly enlarged left cervical chain lymph nodes are likely on a reactive basis. Medication Reconciliation New Medications: Amoxicillin & Pot Clavulanate (Augmentin 875-125 mg) 1 Tab Tab 875 MG PO BID, #20 TAB Lactobacillus Acidophilus (Lactinex) Tab 2 TAB PO BID for 14 Days, TAB Admission Information HPI (per Admitting provider): Hx obtained from px and records. Medical history significant for asthma, ongoing tobacco abuse. Last week, the patient noted to L lower jaw toothache symptoms. Px was seen at the Emergency Room. Carious left lower molars noted. Impression was dental pain Patient prescribed Augmentin w/ good compliance. Advised to see a dentist downtown. Px unable to do so. Increased painful swelling of the L jaw and face in the last few days. Some difficulty in opening mouth. No fever, no chills, no chest pain, no shortness of breath. At the Emergency Room, the patient received Vancomycin. Physical Exam (per Admitting): VITAL SIGNS: Blood pressure was noted to be 116/75, pulse rate 100, RR 18 T 37 O2 98 on room air. GENERAL: Noted to be slightly uncomfortable, no respiratory distress. SKIN: Normal color. HEENT: [place] palpebral conjunctivae, dry mucosa. Swelling on the left cheek, left jaw, tender, indurated; carious posterior molars, L akshat arch; some limitation of mouth opening NECK: No JVD. Supple, tender L cervical area CHEST: Occasional wheeze. ABDOMEN: Soft. EXTREMITIES: No edema, no tenderness. NEUROLOGIC: No gross focality. Hospital Course 1. Odontogenic infection no sepsis for now. Failed outpatient treatment. on clindamycin and Decadron continue same improved d/carlos on Augmentin to f/u with dental surgeon 2. Hypokalemia secondary to poor p.o. intake replaced. 3. asthma, well controlled 4. ongoing tobacco abuse. discharged home Total time spent on discharge = 35MINUTES This includes examination of the patient, discharge planning, medication reconciliation, and communication with other providers. Discharge Instructions Discharge Instructions Date of Service Mar 22, 2017. Admission Reason for Admission: Odontogenic Infection Of Jaw Discharge Discharge Diagnosis / Problem: Odontogenic Infection Of Jaw Discharge Goals Goal(s): Decrease discomfort, Improve function Activity Recommendations Activity Limitations: resume your previous activity . Instructions / Follow-Up Instructions / Follow-Up FOLLOWUP WITH DENTAL SURGEON SOON POSSIBLE. FOLLOWUP WITH FAMILY DOCTOR REGULARLY STRONGLY ADVICE FOR SMOKING CESSATION Current Hospital Diet Patient's current hospital diet: Regular Diet Discharge Diet Recommended Diet: Regular Diet Pending Studies Studies pending at discharge: no Medical Emergencies . Who to Call and When: Medical Emergencies: If at any time you feel your situation is an emergency, please call 911 immediately. . Non-Emergent Contact Non-Emergency issues call your: Primary Care Provider . . "Provider Documentation" section prepared by Krishna Pittman. . VTE Core Measure Inpt VTE Proph given/why not?: SCD's
== END 2017-03-22 14:03 | disposition home or self-care (01) | DRG 159 ==
LOC: C.EDB 23:40 → C.MED 03-21 02:24 → ENRESERV 03-21 02:37
PROVIDERS: ADMIT Internal Medicine; ATTEND Internal Medicine
DX: M27.2 Inflammatory conditions of jaws (principal); E87.6 Hypokalemia; J45.909 Unspecified asthma, uncomplicated; K02.9 Dental caries, unspecified; F17.200 Nicotine dependence, unspecified, uncomplicated